=== PATIENT | female | born 1965 | race Two or more races ===

== ENCOUNTER 2025-07-03 19:21 | Emergency (ER) | payer BC, OTHER ==
[~2025-07-03] VITALS: Ht 172.7 cm; Wt 86.0 kg
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
[2025-07-04 00:55] VITALS: BP 130/86; PULSE 79; RESP 20; TEMP 98.2; O2SAT 94
[2025-07-04] MEDS: HYDROcodone-ACET 5/325MG TAB PO ONE (01:01)
== END 2025-07-04 01:02 | disposition home or self-care (01) ==
LOC: EDBD 19:21 → ER 19:21
DX: S33.5XXA Sprain of ligaments of lumbar spine, initial encounter (principal); S13.4XXA Sprain of ligaments of cervical spine, initial encounter; S80.01XA Contusion of right knee, initial encounter; V43.52XA Car driver injured in collision with other type car in traffic accident, initial encounter; Y93.89 Activity, other specified; Y92.488 Other paved roadways as the place of occurrence of the external cause; Y99.8 Other external cause status
CPT/HCPCS: 72125; 72131; 73562